=== PATIENT | female | born 1980 | race Caucasian/White ===

== ENCOUNTER 2016-10-20 18:14 | Emergency (ER) | payer BC ==
[2016-10-20] MEDS ORDERED: NS 0.9% 1000 ML* 1,000 ML IV ONE (21:20)
--- NOTE | 2016-10-20 21:27 | ED ---
GI/ HPI - HPI Summary HPI Summary: 35 F presents with lower quadrant abdominal pain for 2 days. She says the pain started around her belly button and radiated down to the RLQ but also occasionally moves to her LLQ. She said the pain was sharp yesterday but now has become dull. She admits to nausea and anorexia. She denies any dysuria, vomiting, diarrhea, fever, vaginal discharge or constipation. She had a normal BM today. She denies any previous abdominal surgeries or similar symptoms in the past. LMP was 5 days ago. [facility] here for further evaluation. - History of Current Complaint Chief Complaint: EDAbdPain Time Seen by Provider: 10/20/16 21:10 Stated Complaint: ABD PAIN Pain Intensity: 5 - Allergy/Home Medications Allergies/Adverse Reactions: Allergies Allergy/AdvReac Type Severity Reaction Status Date / Time ASPRIN Allergy GI Upset Uncoded 10/20/16 18:20 CATS Allergy Eyes Uncoded 10/20/16 18:20 Itchy/Swollen/Red/Watery PMH/Surg Hx/FS Hx/Imm Hx Endocrine/Hematology History: Reports: Hx Thyroid Disease Denies: Hx Diabetes Cardiovascular History: Denies: Hx Hypertension, Hx Pacemaker/ICD History: Denies: Hx Renal Disease Sensory History: Denies: Hx Hearing Aid Psychiatric History: Denies: Hx Panic Disorder - Surgical History Surgery Procedure, Year, and Place: TONSILS REMOVED 1996; Infectious Disease History: No Infectious Disease History: Denies: Traveled Outside the [place] in Last 30 Days - Family History Known Family History: Positive: Hypertension - Social History Alcohol Use: Occasionally Substance Use Type: Reports: None Smoking Status (MU): Never Smoked Tobacco Review of Systems Negative: Fever Negative: Chest Pain Negative: Shortness Of Breath Positive: Abdominal Pain - lower quandrants, Nausea. Negative: Vomiting, Diarrhea Negative: dysuria All Other Systems Reviewed And Are Negative: Yes Physical Exam Triage Information Reviewed: Yes Vital Signs On Initial Exam: Initial Vitals Temp Pulse Resp BP Pulse Ox 98.9 F 78 16 122/76 100 10/20/16 18:16 10/20/16 18:16 10/20/16 18:16 10/20/16 18:16 10/20/16 18:16 Vital Signs Reviewed: Yes Appearance: Positive: Well-Appearing, Well-Nourished Skin: Positive: Dry Head/Face: Positive: Normal Head/Face Inspection Eyes: Positive: Normal, Conjunctiva Clear ENT: Positive: Normal ENT inspection, Pharynx normal, TMs normal Respiratory/Lung Sounds: Positive: Clear to Auscultation, Breath Sounds Present Cardiovascular: Positive: Normal, RRR Abdomen Description: Positive: Soft, Other: - moderate tenderness to RLQ and LLQ with greatest tenderness in RLQ, pos rovsings, no rebound. Negative: Guarding Bowel Sounds: Positive: Present Pelvic Exam: Positive: external exam normal, speculum exam normal, bimanual exam normal, no cerv. motion tender. Negative: blood, discharge Diagnostics - Vital Signs Vital Signs Temp Pulse Resp BP Pulse Ox 10/20/16 18:16 98.9 F 78 16 122/76 100 - Laboratory Result Diagrams: 10/20/16 22:15 10/20/16 22:15 Lab Statement: Any lab studies that have been ordered have been reviewed, and results considered in the medical decision making process. - CT abdomen CT Interpretation: Positive (See Comments) - appendix not visualized but prominent fluid filled tubular structure in right hemiplevis could be possible appendictis CT Interpretation Completed By: Radiologist - Ultrasound No standard instances Ultrasound Interpretation: No Acute Changes Ultrasound Interpretation Completed By: Radiologist Re-Evaluation - Re-Evaluation First Eval Re-Evaluation Time: 23:40 Change: Unchanged Comment: pain stating that pain is not that bad and does not need pain medication Second Eval Re-Evaluation Time: 01:46 Change: Unchanged Comment: still does not want pain medication, explained will have to wait overnight in the ED until seen by surgery in the morning GIGU Course/Dx - Course Course Of Treatment: 35 F presents with bilateral lower abdominal pain for 2 days, states started at umblicus and spread to RLQ where pain is greatest, admits to nausea, anorexia, vaginal discharge, on exam has tenderness to both RLQ and LLQ with tenderness greatest in RLQ, pelvic exam: normal no CMT, will order labs, u/s, and CT. u/a normal and u/s normal, labs CRP is elevated but no WBC, CT suspicious for appendicitis but no appendix seen, will call surgery, called Dr Pearl and states will not come in but will evaluate in the morning, signed out to dr ott pending surgical evaluation for disposition - Diagnoses Differential Diagnoses - Female: Appendicitis, Ovarian Cyst, Pelvic Inflammatory Disease, Urinary Tract Infection Provider Diagnoses: Lower abdominal pain - Physician Notifications Discussed Care Of Patient With: dr Pearl Time Discussed With Above Provider: 01:43 - will evaluate in morning for possible appendicits Discharge - Discharge Plan Condition: Stable Disposition: OTHER Discharge Disposition Comment: signed out to dr ott pending surgical evaluation Referrals: Shruthi To MD [Primary Care Provider] -
[2016-10-20 21:52] LABS: Urine Bilirubin Negative (Negative); Urine Glucose Negative (Negative); Urine Nitrite Negative (Negative)
--- NOTE | 2016-10-20 22:19 | RAD ---
Indication: Right lower quadrant pain, pelvic pain. Real-time sonography of the pelvis was performed. The uterus measures 6.7 x 2.4 x 4.0 cm. Endometrial echo measures 6.4 mm. Right ovary measures 29 x 19 x 14 mm. Left ovary measures 35 x 21 x 30 mm. Doppler interrogation demonstrates flow in both ovaries. IMPRESSION: Unremarkable pelvic ultrasound.
[2016-10-20 22:33] LABS: Hematocrit 38 % (35-47); Hemoglobin 12.7 g/dl (12.0-16.0); Mean Corpuscular HGB Conc 34 g/dl (31-36); Mean Corpuscular Hemoglobin 31 pg (27-31); Mean Corpuscular Volume 91 fL (80-97); Mean Platelet Volume 9 um3 (7.4-10.4); Red Blood Count 4.12 10^6/ul (4.0-5.4); Red Cell Distribution Width 13 % (10.5-15); White Blood Count 8.5 10^3/ul (3.5-10.8)
[2016-10-20 22:45] LABS: ALT 24 U/L (7-52); AST 28 U/L (13-39); Albumin 4.4 g/dL (3.2-5.2); Alkaline Phosphatase 38 U/L (34-104); Anion Gap 7 mmol/L (2-11); BUN/Creatinine Ratio 20.9 (8-20); Blood Urea Nitrogen 14 mg/dL (6-24); CO2 Carbon Dioxide 24 mmol/L (22-32); Calcium 9.5 mg/dL (8.6-10.3); Chloride 105 mmol/L (101-111); EGFR African American 127.4 (>60); Globulin 2.8 g/dL (2-4); Glucose 81 mg/dL (70-100); Lipase 21 U/L (11.0-82.0); Potassium 3.3 mmol/L (3.5-5.0); Sodium 136 mmol/L (133-145); Total Protein 7.2 g/dL (6.4-8.9)
[2016-10-21] MEDS ORDERED: Iohexol 350* (CONTRAST) 500 ML MDV IV ONE (00:41)
[2016-10-21] MEDS ORDERED: NS 0.9% 1000 ML* 1,000 ML IV ONE (01:48)
--- NOTE | 2016-10-21 07:52 | RAD ---
CLINICAL HISTORY: Right lower quadrant pain COMPARISON: Pelvic ultrasound dated October 20, 2016 TECHNIQUE: Contrast enhanced CT examination of the abdomen and pelvis from the lung bases through the initial tuberosities. The patient received 69 mL Omnipaque 300 intravenously prior to imaging.The patient received oral contrast as well prior to imaging. FINDINGS: VISUALIZED LUNG BASES: The visualized lung bases are grossly clear. There is no pleural effusion. ABDOMEN AND PELVIS: The liver, spleen, pancreas and adrenal glands are grossly normal in appearance. The gallbladder is normal. The kidneys are normal in appearance without focal mass, calcification or signs of hydronephrosis. The oral contrast has progressed as far as the sigmoid colon. The small and large bowel are not distended. In the right lower quadrant there is a tubular structure without contrast or air in the lumen measuring up to 9 mm in diameter (axial image 112, coronal image 46 and sagittal image 47). On the axial images this structure appears to be contiguous with the base of the cecum causing a circular indentation at the base of the cecum (axial image 124. There is no substantial fluid collection or infiltration of the mesenteric fat in the right lower quadrant, although the patient has very little peritoneal fat for evaluation. Distal to this the colon appears normal. There is no gross retroperitoneal or mesenteric lymphadenopathy. Fluid density structures in the bilateral adnexa corresponds to ovarian follicle seen on the recent pelvic ultrasound. The abdominal aorta and iliac arteries are normal in course and diameter. There are no sinister bone lesions. IMPRESSION: 1. Tubular structure measuring up to 9 mm in diameter in the right lower quadrant that appears to be contiguous with the base of the cecum could be compatible with an edematous and inflamed appendix in the correct clinical setting. 2. Fluid density structures in the bilateral adnexa correspond to the ovarian follicles imaged on the recent pelvic ultrasound.
[2016-10-21] MEDS ORDERED: Piperac/Tazob 3.375 gm in NS* 3.375 GM/100 ML BAG IVPB ONE (08:01)
--- NOTE | 2016-10-21 08:47 | CONSULT ---
Consult Consult: Dr. Pearl came to see Ms. Vásquez in the morning and had several conversations with her. Eventually they settled on IV antibiotics now and D/c With PO antibiotics and F/U with Dr. Pearl. She was D/C'd in stable condition.
[2016-10-21 09:05] VITALS: BP 110/60
--- NOTE | 2016-10-21 13:53 | CONS ---
CC: Severino Pearl MD; Dr. Shruthi To. CONSULTATION REPORT: DATE OF CONSULT: 10/21/16 CHIEF COMPLAINT: Abdominal pain. HISTORY OF PRESENT ILLNESS: The patient is a 35-year-old, otherwise healthy female who presents to the emergency approximately 24 hours of lower abdominal pain. She does not have a history of chronic bowel problems or chronic abdominal pain. She is otherwise reasonably fit and healthy. She first developed some bloaty, crampy feeling in the lower abdomen and then became more sharp down on the lower right side and she presented to the emergency room. She was seen and evaluated by the emergency room physician and I was asked to see her in consultation in the emergency room. She has not had chronic problems like this before and has not had an admission for anything like this before. PAST MEDICAL HISTORY: Her past medical history reveals that she is generally healthy. No chronic medical issues. PAST SURGICAL HISTORY: Her only previous surgery is tonsils when she was much younger. MEDICATIONS: Her only medication is Synthroid 0.75 mg daily that she takes for hypothyroidism. ALLERGIES: She quotes an allergy to aspirin having caused stomach upset. FAMILY HISTORY: Benign. No chronic medical issues. Nothing GI. No bleeding tendencies to anesthesia reactions or the sort. SOCIAL HISTORY: She is . No children. 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 She is nonsmoker, nondrinker. Does not use drugs or illicit substances, is actually a bit of fitness nut running avidly and very into nutrition and fitness. REVIEW OF SYSTEMS: Benign. No cardiac history, chest pain, heart pain, angina. No chronic bronchitis or emphysema. No hepatobiliary disease. No diabetes. Thyroid as mentioned above. No prior GI history. Crohn's disease, colitis, or the like. No previous history. No major kidney stones or kidney infections. No gynecologic history. She is currently a couple of days after her menses and now has fairly regular menstrual cycle. However, at one point years ago she went a number of years without a menstrual cycle in part from a pill and in part from intense exercise. She has no neuromuscular or psych issues. No musculoskeletal issues. 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 PHYSICAL EXAM: She is a well-developed, well-nourished female. She does not appear acutely ill. Skin is warm and well perfused. She is not diaphoretic. She is not jaundiced. Vital signs show temperature of 98.6, pulse 60 and regular, respirations 16, unlabored, blood pressure 110/60. Head and neck are benign. Neck is supple without any adenopathy. Lungs are clear bilaterally. Heart is regular without any abnormal sounds. Abdomen is soft, flat, nondistended. She has some right suprapubic tenderness. No guarding. No definite rebound tenderness. No percussion tenderness. No definite Rovsing's sign. Mild heel strike tenderness. No palpable masses. Extremities are well perfused and without edema. DIAGNOSTIC STUDIES/LAB DATA: Reveal a white blood count of 8500 with normal differential. Electrolytes are essentially normal. Renal function normal. Liver chemistry normal, lipase normal. HCG is negative and her C-reactive protein is somewhat elevated at 44. Urinalysis is benign. She has had a transvaginal ultrasound, which identifies uterus and ovaries and they are benign. She has also had a CT scan of abdomen and pelvis, which shows a tubular structure in the pelvis, possibly representing an edematous appendix, possibly representing an opacified loop of bowel. Her body habitus being rather slender has a paucity of fat planes making this a little less clear, but certainly somewhat suspicious. IMPRESSION: A 35-year-old female with right lower quadrant pain and possibly a swollen appendix on CT scan without any systemic infectious findings. I discussed this with her at great length (total of about 60 minutes). We talked about the pros and cons of proceeding with surgery at this time with the knowledge that the diagnosis of appendicitis is not certain, but that if we looked in with a laparoscope we would know whether it was appendicitis or not, we could then treat it on the spot with the appendectomy. We talked about the option of watchful waiting, which I did not recommend in the circumstance and we talked about the option of the antibiotic treatment for presumed very early appendicitis and what some of the data was regarding that antibiotic treatment, the possibility of short term failure requiring surgery as well a longer term failure or recurrence of appendicitis somewhere in the next 3 to 12 months. She had a chance to talk to her , and I gave them time to think this over , and we decided to go ahead with nonoperative treatment of this possible very early appendicitis. They understand that if at any time the pain seems to be getting worse or she starts to develop fever, they should call us right away and we will see her right back and that she could end up needing appendectomy. So she is discharged from the emergency room and will followup in the office in a few days to reassess. [id number]/[facility] #: [id number] JOSEPH
== END 2016-10-21 09:02 | disposition home or self-care (01) ==
LOC: ED 18:14
DX: R10.30 Lower abdominal pain, unspecified (principal)
CPT/HCPCS: 36415; 74177; 76830; 80053; 81003; 83690; 84702; 85025; 86141; 87480; 87491; 87510; 87591; 87661; 96360; 99282; J2543; Q9967